=== PATIENT | male | born 1990 | race Two or more races ===

== ENCOUNTER 2024-02-21 16:38 | Emergency (ER) | payer OTHER ==
--- NOTE | 2024-02-21 17:05 | ED Physician Documentation ---
History of Present Illness - Stated complaint Stated Complaint: GROIN PX - Chief complaint Chief Complaint: General - History obtained from History obtained from: Patient - History of Present Illness Timing: Today Pain level max: 7 Pain level now: 7 - Additonal information Additional information: Patient is a 34-year-old male who presents to the emergency department stating that he has left testicular pain. Started about noon today. He went to the walk-in clinic and was sent here for ultrasound. Worse with standing and walking. He has not noted any swelling. No STD exposure. He is sexually active but no change in sexual partners. No anal intercourse. No penile discharge. No dysuria or urinary symptoms. Review of Systems Constitutional: denies: Fever, Chills Respiratory: denies: Cough PD PAST MEDICAL HISTORY - Past Medical History Past Medical History: No Cardiovascular: None Respiratory: None Neuro: None Endocrine/Autoimmune: None GI: None : None HEENT: None Psych: None Musculoskeletal: None Derm: None - Past Surgical History Past Surgical History: No - Present Medications Home Medications: Ambulatory Orders Medication Instructions Recorded Confirmed Doxycycline [Vibramycin] 100 mg PO BID #20 tablet 02/21/24 oxyCODONE [Roxicodone] 5 - 10 mg PO Q6H PRN #14 tablet 02/21/24 MDD 6 - Allergies Allergies/Adverse Reactions: Allergies Allergy/AdvReac Type Severity Reaction Status Date / Time No Known Drug Allergies Allergy Verified 02/21/24 16:46 - Social History Does the pt smoke?: No Smoking Status: Never smoker Does the pt drink ETOH?: Yes - Immunizations Immunizations are current?: Yes - POLST Patient has POLST: No PD ED PE NORMAL - Vitals Vital signs reviewed: Yes - General General: Alert and oriented X 3, No acute distress - HEENT HEENT: Moist mucous membranes - Neck Neck: Supple, no meningeal sign - Cardiac Cardiac: RRR - Respiratory Respiratory: No respiratory distress, Clear bilaterally - Abdomen Abdomen: Soft, Non tender, Non distended - Male Male : Other (Tender to palpation over the left epididymis. Reproduces his pain. Normal testicular lie. No swelling. No skin changes. No lymphadenopathy. Otherwise normal appearance of the testicles.) - Back Back: No spinal TTP - Derm Derm: Warm and dry - Neuro Neuro: Alert and oriented X 3 Results - Vitals Vitals: Vital Signs - 24 hr 02/21/24 02/21/24 02/21/24 16:41 17:14 17:30 Temperature 36.9 C Heart Rate 68 64 57 L Respiratory 16 14 16 Rate Blood Pressure 150/80 H 129/81 H 123/73 O2 Saturation 99 98 98 02/21/24 18:00 Temperature Heart Rate 61 Respiratory 16 Rate Blood Pressure 128/89 H O2 Saturation 99 Oxygen O2 Source Room air - Rads (name of study) Ultrasound testicular Relevant Findings:: Final report received, See rad report PD Medical Decision Making - ED course Complexity details: reviewed results, re-evaluated patient, considered differential, d/w patient ED course: 34-year-old male with what appears to be a left epididymitis on physical exam and confirmed with ultrasound. No STD exposure. Given Rocephin and doxycycline. Will place on pain medication for home and prescribe doxycycline for home. Recommend that he follow-up with his PCP for further care. No iain dence of orchitis or testicular torsion. Patient counseled regarding signs and symptoms for which I believe and urgent re-evaluation would be necessary. Patient with good understanding of and agreement to plan and is comfortable going home at this time This document was made in part using voice recognition software. While efforts are made to proofread this document, sound alike and grammatical errors may occur. Departure - Departure Disposition: 01 Home, Self Care Clinical Impression: Epididymitis Condition: Good Instructions: ED Epididymitis Follow-Up: your,doctor in 1 week [Other] Prescriptions: oxyCODONE [Roxicodone] 5 - 10 mg PO Q6H PRN #14 tablet MDD 6 PRN Reason: pain Doxycycline [Vibramycin] 100 mg PO BID #20 tablet Comments: Your prescriptions were sent to [facility] in [place]. You have epididymitis on your ultrasound tonight. You were given Rocephin here. Take all doxycycline until gone. Please follow-up with your doctor for further care. Return if you worsen. I am prescribing a short course of narcotic pain medication for you. These are potentially dangerous and addictive medications that should be used carefully. These medications may constipate you. Take an iqlk-vzr-hwgqfze stool softener (docusate) twice daily with plenty of water while taking these medications. If you go 24 hours without a bowel movement, take ogjy-[id number] miralax, per package instructions. Do not drink or drive while taking these medications. If you received narcotic or sedating medications while in the emergency department, do not drive for 24 hours. Store this medication in a safe, secure place and out of reach of children. It is a violation of federal law to give or sell this medication to another person or to use in a manner other than prescribed. The ED will not refill narcotic prescriptions, including prescriptions lost or stolen. To dispose of unwanted medications: 1. [facility] at [address] in [place] has a medication drop box. They accept prescription medications (in pill form) Sunday through Sunday 9:00 a.m. to 5:00 p.m. 2. The [facility] [employer] accepts prescription medications (in pill form only) for disposal year round. Call for more information. 3. Contact the [facility] for the next [facility] sponsored prescription drug collection event. , [phone], or [phone]; Forms: PCP List
[2024-02-21] MEDS: KETOROLAC 60 MG/2 ML VIAL IM STA (17:12)
--- NOTE | 2024-02-21 18:46 | Ultrasound Report ---
PROCEDURE: Testicle w/Doppler INDICATIONS: TESTICULAR PAIN TECHNIQUE: Real-time scanning was performed of the scrotum and testicles, with image documentation. Color and p ulse Doppler interrogation was performed of both testicles. COMPARISON: None. FINDINGS: Right: Testicle is normal in size at 4.7 x 2.2 x 2.8 cm, and homogenous in echotexture. Epididymis is normal in overall size and morphology. Cluster of subcentimeter cysts in the epididymal head. No h ydrocele. No varicoceles. Overlying scrotal skin is normal in thickness. Left: Testicle is normal in size at 4.3 x 2.2 x 3 cm, and homogeneous in echotexture. Epididymis is slightly enlarged with normal morphology, and with mildly increased vascularity. No hydrocele. No v aricoceles. Overlying scrotal skin is normal in thickness. Doppler: Color and pulse Doppler demonstrate normal and symmetric arterial flow in both testicles. IMPRESSION: Mildly increased left epididymal vascularity, with mild enlargement. Findings are concerning for epid idymitis. Benign right epididymal head cysts. Reviewed by: Storm Lara MD on 02/21/2024 6:45 PM PDT Approved by: Storm Lara MD on 02/21/2024 6:45 PM PDT Station ID: [id number]
[2024-02-21 18:47] VITALS: BP 128/89; O2SAT 99
[2024-02-21] MEDS: LIDOCAINE 1% 2 ML VIAL MC ONE (18:48)
[2024-02-21] MEDS: cefTRIAXone 1 GM VIAL IM STA (18:48)
[2024-02-21] MEDS: DOXYCYCLINE 100 MG TABLET PO STA (18:48)
== END 2024-02-21 18:57 | disposition home or self-care (01) ==
LOC: EDBD → ED 16:38
DX: N45.1 Epididymitis (principal)
CPT/HCPCS: 76870; 93975; 96372; 99283; 99284; A9270; 81001; 81003; 87086; 87491; 87591; 87661

== ENCOUNTER 2024-02-25 09:45 | Outpatient (CLI) | payer OTHER ==
[2024-02-25 19:47] LABS: H. PYLORIS ANTIGEN STL NEGATIVE (Negative)
== END 2024-02-25 10:00 | disposition home or self-care (01) ==
LOC: LAB.N 09:45
PROVIDERS: ATTEND Physician Assistant Medical
DX: R10.13 Epigastric pain (principal)
CPT/HCPCS: 87338